=== PATIENT | female | born 1950 | race Caucasian/White ===

== ENCOUNTER 2025-01-01 15:25 | Emergency (ER) | payer MEDICARE, OTHER, SELFPAY ==
[2025-01-01 15:30] VITALS: BP 145/66
--- NOTE | 2025-01-01 19:44 | ED.GENMED ---
History of Present Illness
General
Chief Complaint: Musculo-Skeletal Complaint
Source: patient
Exam Limitations: none
Time Seen by Provider: 01/01/25 18:42
Nursing documentation reviewed up to this point in time: agreed with
History of Present Illness
History of Present Illness:
The patient is a 74 year-old female who presents to the emergency department for evaluation of intermittent left arm pain radiating to the left chest. She states that symptoms have been present for the past 1 to 2 months. She initially noticed the
symptoms after gardening and thought she may have pulled a muscle. She reports pain that radiates down the left arm and into the left chest only with movement of the arm. She denies any associated shortness of breath, back pain, numbness/tingling in
arm, lightheadedness.
Patient felt that her left arm was somewhat swollen today prompting visit to the urgent care where they referred her to the emergency department for an ultrasound.
Patient also reports noticing a lump in her left breast around the time symptoms initially began which she attributed to muscular tissue from a strain.
She is unsure if it has been getting larger. She denies any fevers, redness, warmth, or drainage of area.
Patient is up-to-date with her mammograms and is due for one this coming
Review of Systems
Review of Systems
Allergies reviewed?: Yes
All Other Systems: ROS reviewed and negative except as documented in HPI and ROS
Phy Exam
Physical Exam
Physical Exam:
Vitals: Mildly hypertensive, otherwise vital signs stable. Afebrile
General: Patient is well appearing, no acute distress. Nontoxic appearing
Skin: Warm and dry, no rashes or lesions
Head: Normocephalic, atraumatic
Eyes: Sclera nonicteric. EOMs intact. No nystagmus.
Throat: Protecting airway
Neck: Normal ROM, no cervical spine tenderness, no meningismus
Cardiac: Regular rate and rhythm, no murmurs.
Chest: Approximately 3 x 2 cm somewhat firm mass in outer quadrant of left breast with mild tenderness. No overlying erythema, warmth, or drainage. Few palpable lymphademopathy in left axilla
Pulm: Normal respiratory effort, no wheezes, rales, rhonchi heard on exam
Abdomen: No abdominal tenderness.
Extremities: No appreciable swelling in LUE with full ROM. 2+ left palpable brachial and radial pulse with normal capillary refill.
Neuro: AAOx3. Grossly intact.
Psychiatric: Normal affect.
Course
Orders/Labs/Results
Orders:
Orders
01/01/25 19:40
Venous Doppler Upr Ext Left [US Periph Venous UPPER Ext LT] Urgent
Comment: pain in left axilla/left breast
Reason For Exam: Atraumatic arm swelling
01/01/25 19:44
Electrocardiogram (*1) Urgent
Reason for Study: Chest Pain
EKG- Treatment ONCE
01/01/25 20:28
Complete Blood Count/With Diff Urgent
Comprehensive Metabolic Panel Urgent
Troponin I Urgent
Abnormal Lab Results
01/01/25
20:28
MCH 31.6 H pg
(27.0-31.0)
Absolute Lymphs (auto) 1.1 L 10^3/uL
(1.2-3.4)
Lymphocytes % 17.2 L %
(20.5-51.1)
Glucose 101 H mg/dl
(70-99)
AST 86 H U/L
(14-36)
ALT 114 H U/L
(0-35)
01/01/25 20:28
01/01/25 20:28
Vital Signs
Initial and Last Documented VS:
Initial Vital Signs
Temp Pulse Resp BP Pulse Ox
98.2 F 98 16 145/66 96
01/01/25 15:30 01/01/25 15:30 01/01/25 15:30 01/01/25 15:30 01/01/25 15:30
Last Documented Vital Signs
Temp Pulse Resp BP Pulse Ox
98.2 F 90 21 129/60 98
01/01/25 15:30 01/01/25 21:00 01/01/25 21:00 01/01/25 20:35 01/01/25 20:35
MDM/Problems Addressed
Differential Diagnosis Includes:
Not limited to: Muscle strain/spasm, lymphadenopathy, fibrocystic breast disease, malignancy, breast abscess, ACS, etc.
MDM/Problems Addressed:
74-year-old female presenting with intermittent left arm discomfort radiating to left chest. Sent by urgent care for ultrasound after possible swelling noted of left upper extremity. She also has lump that she has noticed in her left breast over the
past few months. No associated infectious symptoms. No clear exertional or pleuritic component to symptoms.
Vitals stable. On exam � patient very well appearing, no apparent distress. Heart regular rate and rhythm. Lungs cleared bilaterally. On my exam � there�s no appreciable swelling in LUE and is neurovascularly intact. There is a somewhat firm,
atypical mass in the outer quadrant of the left breast without any overly skin changes or evidence of infection.
Ultimately- very low suspicion for cardiac etiology of symptoms today. However, will screen with labs, EKG. Will check peripheral venous ultrasound of LUE to rule out DVT however, feel this is very unlikely.
Update: [facility] labs without clinical significant abnormalities. LFTs mildly elevated and nonspecific � advised patient have this rechecked w/ primary. Troponin negative. EKG normal sinus rhythm without acute ischemic changes. No evidence of DVT on
ultrasound.
Overall � left arm pain possibly musculoskeletal in nature. No evidence of DVT. Do not suspect cardiac etiology.
In regard to breast mass � no evidence of infection or concern for abscess. Possibly cystic however concern would be malignancy. This will require further imaging outpatient � patient was provided prescription for breast ultrasound. Advised to
contact primary care provider Saturday morning to schedule.
Patient will also follow up with cardiology. Close return precautions discussed.
Chronic conditions affecting care:
N/A
Acute Exacerbation and/or Progression of Chronic Illness:
N/A
*Radiology
Radiology exam reviewed: radiology read reviewed
*Pulse Oximetry
SaO2: 96
Oxygen Mode of Delivery: Room air
Patient hypoxic: no
*EKG
Interpreted by ED Provider?: Yes
EKG Intrepretation Date: 01/01/25
Interpretation: normal
Comparison EKG: no comparison EKG present
Heart Rate: 84
Rate: normal
Rhythm: sinus
[place]: normal axis
Interval: normal QT interval
QRS Pattern: normal QRS
Ischemia: no ischemia
*Sl[place] Wheeler Interpretation
Rate: normal
Interpretation: normal
Heart Rate: 88
Rhythm: sinus
*Critical Care Note
Total Time (30-74mins, 75-104mins- exclusive of procedures): Not Applicable
ED Attending Note
-
Portions of this chart may have been created with voice recognition software.� Occasional wrong word or��sound alike� substitutions may have occurred due to the inherent limitations of voice recognition software.
Discharge Plan
Departure
Patient Disposition: Home (Routine Discharge)
Date of Disposition: 01/01/25
Time of Disposition: 21:08
Patient with high blood pressure during this ER visit?: Yes
Condition: Good
Covid-19: Not Applicable
Discharge Problem:
Breast mass, left, Pain in left arm
Instructions: BLOOD PRESSURE
Referrals:
Tatyana Hampton MD [Family Provider, Internal Medicine] - Tomorrow
Activity Restrictions/Additional Instructions:
RETURN TO THE EMERGENCY DEPARTMENT WITH ANY FEVER, CHILLS, CHEST PAIN OR SHORTNESS OF BREATH, REDNESS WARMTH OR WORSENING PAIN IN LEFT BREAST, NUMBNESS/TINGLING IN LEFT ARM, OR ANY OTHER CONCERN
- As discussed�your liver function test were mildly elevated in the emergency department. Please have these repeated with your primary care provider to ensure trending down.
- Your ultrasound showed no evidence of a blood clot in your left upper extremity.
- As discussed- it is imperative that you have a follow-up ultrasound of your left breast characterization of palpable lump/mass. Please contact your primary care provider for prompt outpatient ultrasound. I have also given you a prescription if
needed. Please ensure that the results are sent to your primary care provider.
- Please follow-up with both your primary care provider and water supply technician
Monitor your symptoms closely and return to the emergency department with any acute worsening/new symptoms or any other concerns
Interventions
Interventions:
*Risk Screen - Suicide Last Done: 01/01/25 15:30
*General Assessment Last Done: 01/01/25 15:30
*Neglect/Abuse Screening Last Done: 01/01/25 15:30
*Nursing Disposition Last Done: 01/01/25 22:03
ED-Musculoskeletal Assessment Last Done: 01/01/25 20:41
Discharge Date and Time
Discharge Date/Time: 01/01/25 22:03
Print Language: INDONESIAN
[2025-01-01 20:35] VITALS: BP 129/60
[2025-01-01 20:42] LABS: Hematocrit 40.0 % (37.0-47.0); Hemoglobin 13.4 g/dL (12.0-16.0); Mean Corp Hgb Conc. 33.5 g/dL (33.0-37.0); Mean Corpuscular Volume 94.3 fL (81.0-99.0); Nucleated Red Blood Cells % 0 %; Platelet Count 195 10^3/uL (130-400); Red Cell Dist. Width 13.4 % (11.5-14.5)
[2025-01-01 20:58] LABS: ALT (SGPT) 114 U/L (0-35); AST (SGOT) 86 U/L (14-36); Albumin 4.0 g/dl (3.5-5.0); Alkaline Phosphatase 58 U/L (38-126); Blood Urea Nitrogen 11 mg/dl (7-17); Calcium 9.4 mg/dl (8.4-10.2); Carbon Dioxide 30 mmol/L (22-30); Chloride 104 mmol/L (98-107); Glucose 101 mg/dl (70-99); Potassium 4.5 mmol/L (3.5-5.1); Sodium 137 mmol/L (135-145); Total Protein 6.7 g/dl (6.3-8.2); eGFR > 60.00
[2025-01-01 21:09] LABS: Troponin I 0.027 ng/ml
== END 2025-01-01 22:03 | disposition home or self-care (01) ==
LOC: EMR 15:25
PROVIDERS: Physician Assistant; EMERGENCY PHYSICIAN Emergency Medicine; FAMILY PHYSICIAN Internal Medicine
DX: N63.20 Unspecified lump in the left breast, unspecified quadrant (principal); M79.602 Pain in left arm
CPT/HCPCS: 99284; 80053; 84484; 85025; 93005; 93971